=== PATIENT | female | born 2000 | race Caucasian/White ===

== ENCOUNTER 2023-08-16 20:38 | Emergency (ER) | payer OTHER ==
[2023-08-16 20:48] VITALS: O2SAT 98
--- NOTE | 2023-08-16 21:35 | ERPHSYRPT ---
- History of Present Illness Historian: patient Exam Limitations: no limitations Patient Subjective Stated Complaint: C/O chest pain that started at 0500 today while sitting in her bed at home. Triage Nursing Assessment: Patient ambulated back to ER without difficulties. S he is alert and oriented. No SOB. Skin tone normal. HUBBARD WNL. No edema. Physician History: Patient is a 23-year-old female with midsternal chest pain since 5 AM. Pain is sharp, midsternal and 9 out of 10 on the pain scale. It does not radiate. Nothing makes it better or worse. She has had nausea without vomiting, diaphoresis, or dyspnea. There is no cough or coryza. Patient has hypertension and vapes daily. Timing/Duration: other ( 5 AM today) Quality: sharpness Location: substernal Chest Pain Radiation: no radiation Severity of Pain-Max: severe Severity of Pain-Current: severe Modifying Factors: Improves With: nothing Associated Symptoms: denies symptoms, nausea Prior Chest Pain/Cardiac Workup: no prior chest pain Nitro Today/Relief: no nitro taken today Aspirin Treatment Today: no aspirin today Allergies/Adverse Reactions: No Known Drug Allergies Allergy (Verified 08/16/23 20:40) Home Medications: Albuterol Sulfate [Proair Respiclick] 2 puff PO Q4-6HPRN PRN 08/16/23 [History] Ergocalciferol (Vitamin D2) [Vitamin D2] 1,250 mcg PO WEEKLY 08/16/23 [History] Labetalol HCl 100 mg [Trandate 100 MG] 100 mg PO BID 08/16/23 [History] Hx Tetanus, Diphtheria Vaccination/Date Given: Yes Hx Influenza Vaccination/Date Given: No Hx Pneumococcal Vaccination/Date Given: No Immunizations Up to Date: Yes Travel Risk - International Travel Have you traveled outside of the country in past 3 weeks: No - Emerging Infectious Disease Are you exhibiting symptoms associated with any current EIDs: No - Review of Systems Constitutional: No Symptoms Eyes: No Symptoms Ears, Nose, & Throat: No Symptoms Respiratory: No Symptoms Abdominal/Gastrointestinal: No Symptoms Genitourinary Symptoms: No Symptoms Musculoskeletal: No Symptoms Skin: No Symptoms Neurological: No Symptoms Psychological: No Symptoms Endocrine: No Symptoms Hematologic/Lymphatic: No Symptoms Immunological/Allergic: No Symptoms - Past Medical History Pertinent Past Medical History: Yes Cardiac History: Hypertension Respiratory History: Asthma Other Medical History: thyroid nodules - Past Surgical History Past Surgical History: Yes Female Surgical History: Section - Female History Hx Last Menstrual Period: 07/27/23 Hx Now: No ("not that I know of") - Social History Smoking Status: Never smoker Exposure to second hand smoke: Yes Drug Use: none - Social Determinants of Health Will the patient participate in the screening: Yes Do you worry about a steady place to live?: No Do you have any problems with any of the following?: No known problems In the past 12 months,have you had to go without utilities?: No Transportation Issues: No Has anyone in your support network made you feel unsafe?: No Have you or anyone in your house had to go without enough: No - Nursing Vital Signs Nursing Vital Signs: Initial Vital Signs Pulse Rate 75 08/16/23 20:39 Respiratory Rate 19 08/16/23 20:39 Blood Pressure 135/89 08/16/23 20:39 O2 Sat by Pulse Oximetry 97 08/16/23 20:39 Pain Scale Pain Intensity 4 borderline hypertension - Physical Exam General Appearance: no apparent distress Eye Exam: PERRL/EOMI, eyes nml inspection Ears, Nose, Throat Exam: normal ENT inspection, TMs normal, pharynx normal, moist mucous membranes Neck Exam: normal inspection, non-tender, supple, full range of motion Respiratory Exam: normal breath sounds, lungs clear, airway intact Cardiovascular Exam: regular rate/rhythm, normal heart sounds, normal peripheral pulses, capillary refill <2 sec, No murmur Gastrointestinal/Abdomen Exam: soft, normal bowel sounds, No tenderness Back Exam: normal inspection, normal range of motion Extremity Exam: normal inspection, normal range of motion Neurologic Exam: alert, oriented x 3, cooperative, transfer engineer II-XII nml as tested, normal mood/affect, nml cerebellar function, nml station & gait, sensation nml Skin Exam: normal color, warm, dry Lymphatic Exam: No adenopathy SpO2 Interpretation: normal SpO2: 98 O2 Delivery: Room Air - Course Nursing assessment & vital signs reviewed: Yes EKG Interpreted by Me: RATE ( normal sinus rhythm/rate 75/normal QT-QTc/no acute ST segment changes/interpreted contemporaneously per ER physician.) - Radiology Exams Chest X-ray Interpretation: Interpreted by me (NAD) Ordered Tests: Active Orders 24 hr Category Date Time Status CHEST 1 VIEW (PORTABLE) Stat Exams 08/16/23 21:31 Taken D-DIMER QUANTITATIVE Stat Lab 08/16/23 21:00 Completed TROPONIN Q4H Lab 08/16/23 21:00 Completed TROPONIN Q4H Lab 08/17/23 01:45 Ordered TROPONIN Q4H Lab 08/17/23 05:45 Ordered Lab/Rad Data: Laboratory Results 08/16/23 08/16/23 Range/Units 21:00 21:00 D-Dimer 0.32 (0.0-0.50) mg/L Troponin I < 0.012 (0.000-0.033) ng/mL reviewed - Progress Progress Note: 08/16/23 22:41 Nursing note and vital signs reviewed. No food or housing insecurity noted. All lab results thoroughly reviewed and shared with patient. Chest x-ray interpreted by ER physician and result was shared with patient. Patient's heart score is 1 and Wells score for pulmonary embolus is 0. Pain is most likely noncardiac in origin, and patient is advised to follow-up with her PCP in 1 to 2 days and return to ER for increasing pain, increasing shortness of breath, or temperature greater 100.5. Counseled pt/family regarding: lab results, diagnosis, need for follow-up, rad results Medical Desision Making - Diagnostic Testing Diagnostic test were ordered, analyzed, and reviewed by me: Yes Radiological Interpretation: Interpreted by me - Risk of complications Low Risk: Low risk of morbidity from additional dx testing or treatment - Departure Departure Disposition: Home Clinical Impression: Chest pain Condition: Stable Critical Care Time: No Referrals: VALENTE PATTON NP [Primary Care Provider] - Follow up/PCP as directed Instructions: Chest Pain (DC) Additional Instructions: Follow-up with your family MD in 1 to 2 days Motrin/Tylenol for pain Return to ER for increasing pain, increasing shortness of breath, or temperature greater 100.5.
[2023-08-16 22:18] VITALS: BP 109/74; PULSE 74; RESP 21
--- NOTE | 2023-08-17 08:55 | XRAY ---
Indication: Chest pain. Comparison: None Portable chest demonstrates normal heart, lungs, and bony thorax.
== END 2023-08-16 22:45 | disposition home or self-care (01) ==
LOC: ED 20:38
DX: R07.9 Chest pain, unspecified (principal); R11.0 Nausea; I10 Essential (primary) hypertension; Z79.899 Other long term (current) drug therapy
CPT/HCPCS: 36000; 36415; 71045; 84484; 85379; 93005; 99284

== ENCOUNTER 2023-11-24 21:30 | Emergency (ER) | payer OTHER ==
[2023-11-24 22:12] VITALS: TEMP 97.5
[2023-11-24 22:34] LABS: HCG URINE TEST NEGATIVE (NEGATIVE)
[2023-11-24 22:47] LABS: Appearance Clear (Clear); Bacteria None Seen /HPF (None Seen); Bilirubin Negative (Negative); Blood Moderate (Negative); Epithelial Cells None Seen /HPF (None Seen); Glucose, Urine Negative (Negative); Hyaline Casts NONE SEEN /LPF (0-2); Ketones Negative (Negative); Leukocyte Esterase Negative (Negative); Nitrite Negative (Negative); Protein,Urine Dip Negative (Negative); RBC 0-2 /HPF (0-5); Specific Gravity <=1.005 (1.005-1.030); WBC 0-2 /HPF (0-5)
[2023-11-24] MEDS ORDERED: Sodium Chloride 0.9% 1000 ML 1,000 ML ONE (22:50)
[2023-11-24] MEDS: Sodium Chloride 0.9% 1000 ML 1,000 ML IV STA (22:51)
[2023-11-24 22:54] LABS: Absolute Neutrophil Ct (ANC) 7.29 x10^3/uL (1.56-6.13); BASOPHIL % 0.3 % (0.1-1.2); Basophil (Absolute #) 0.04 x10^3/uL (0.01-0.08); Eosinophil (Absolute #) 0.36 x10^3/uL (0.04-0.36); Hemoglobin 11.5 g/dL (11.2-15.7); IMMATURE GRAN # 0.03 x10^3u/L (0.001-0.031); IMMATURE GRAN % 0.3 % (0.001-0.429); Lymphocyte (Absolute #) 3.49 x10^3/uL (1.18-3.74); Lymphocytes % 29.6 % (19.3-51.7); Mean Cell Volume 89.3 fL (79.4-94.8); Mean Corpuscular Hemoglobin 29.3 pg (25.6-32.2); Mean Corpuscular Hgb Concent. 32.9 g/dL (32.2-35.5); Mean Platelet Volume 10.4 fL (9.4-12.3); Monocytes % 5.1 % (4.7-12.5); Neutrophil % 61.7 % (34.0-71.1); Platelet Count 325 x10^3/uL (182-369); Red Blood Count 3.92 x10^6/uL (3.93-5.22); Red Cell Distribution Width 11.9 % (11.7-14.4); White Blood Count 11.8 x10^3/uL (3.98-10.04)
--- NOTE | 2023-11-24 22:57 | ERPHSYRPT ---
- History of Present Illness Time Seen by Provider: 11/24/23 22:51 Historian: patient Exam Limitations: no limitations Patient Subjective Stated Complaint: c/o of abdominal pain Triage Nursing Assessment: Pt brought to ED by sister with c/o of abdominal pain. Rates pain 11/01. Pt had ultrasound last week that showed gallstones. Patient said she has been having pain for the past couple of months but today the pain was a lot worse. Pt's vitals wnl, gait steady, pulses normal, skin w/n/d, last BM this morning, bowel sounds present in all 4 quads, non-tender with palpation, pt doesn't appear to be in any distress at this time. Physician History: 23-year-old female presents to our emergency department for evaluation of epigastric pain. Patient states she has been experiencing intermittent epigastric pain for several months. Last week patient followed up with her primary care doctor. They performed an outpatient right upper quadrant ultrasound which revealed gallstones. Patient currently has an appointment agnes eduled to follow-up with Dr. Carrillo on December 08. Patient is here today because she is experiencing a recurrence of her abdominal pain. Pain is epigastric into the right upper quadrant. Patient reports the pain was 7 out of 10 prior to arrival. Pain is down to 4 out of 10 at this time. Patient declined additional pain medication because she feels comfortable. No trauma. No fever. No vomiti ng no diarrhea no rash. Sister at bedside. They voiced no other complaints or concerns at this time. Portions of this note were created with voice recognition technology. There may be grammatical, spelling, punctuation or sound alike errors Timing/Duration: today Activities at Onset: none Quality: aching Abdominal Pain Onset Location: epigastric Pain Radiation: no radiation Severity of Pain-Max: moderate Severity of Pain-Current: mild Modifying Factors: Improves With: palpation Associated Symptoms: denies symptoms Previous symptoms: same symptoms as today Allergies/Adverse Reactions: No Known Drug Allergies Allergy (Verified 11/24/23 22:11) Home Medications: Albuterol Sulfate [Proair Respiclick] 2 puff PO Q4-6HPRN PRN 08/16/23 [History] Ergocalciferol (Vitamin D2) [Vitamin D2] 1,250 mcg PO WEEKLY 08/16/23 [History] Labetalol HCl 100 mg [Trandate 100 MG] 100 mg PO BID 08/16/23 [History] Letrozole 2.5 mg PO UD 11/24/23 [History] Metformin HCl 500 mg [Glucophage 500 MG] 500 mg PO DAILY 11/24/23 [History] Hx Tetanus, Diphtheria Vaccination/Date Given: No (unknown) Hx Influenza Vaccination/Date Given: No Hx Pneumococcal Vaccination/Date Given: No Travel Risk - International Travel Have you traveled outside of the country in past 3 weeks: No - Emerging Infectious Disease Are you exhibiting symptoms associated with any current EIDs: Yes Symptoms: Abdominal Pain - Review of Systems Constitutional: No Symptoms, No Fever, No Chills Eyes: No Symptoms Ears, Nose, & Throat: No Symptoms Respiratory: No Symptoms, No Cough, No Dyspnea Cardiac: No Symptoms, No Chest Pain, No Edema, No Syncope Abdominal/Gastrointestinal: No Symptoms, No Abdominal Pain, No Nausea, No Vomiting, No Diarrhea Genitourinary Symptoms: No Symptoms, No Dysuria Musculoskeletal: No Symptoms, No Back Pain, No Neck Pain Skin: No Symptoms, No Rash Neurological: No Symptoms, No Dizziness, No Focal Weakness, No Sensory Changes Psychological: No Symptoms Endocrine: No Symptoms Hematologic/Lymphatic: No Symptoms Immunological/Allergic: No Symptoms All Other Systems: Reviewed and Negative - Past Medical History Pertinent Past Medical History: Yes Cardiac History: Hypertension Respiratory History: Asthma GI Medical History: Ulcer Other Medical History: thyroid nodules, gallstones - Past Surgical History Past Surgical History: Yes Female Surgical History: Section - Female History Hx Last Menstrual Period: 11/23/2013 Hx Now: No - Social History Smoking Status: Never smoker Exposure to second hand smoke: Yes Drug Use: none - Social Determinants of Health Will the patient participate in the screening: Yes Do you worry about a steady place to live?: No Do you have any problems with any of the following?: No known problems In the past 12 months,have you had to go without utilities?: No Transportation Issues: No Has anyone in your support network made you feel unsafe?: No Have you or anyone in your house had to go without enough: No - Nursing Vital Signs Nursing Vital Signs: Initial Vital Signs Temperature 97.5 F 11/24/23 21:58 Pulse Rate 55 L 11/24/23 21:58 Respiratory Rate 18 11/24/23 21:58 Blood Pressure 110/75 11/24/23 21:58 O2 Sat by Pulse Oximetry 100 11/24/23 21:58 Pain Scale Pain Intensity 9 - Physical Exam General Appearance: no apparent distress, alert Eye Exam: PERRL/EOMI, eyes nml inspection Ears, Nose, Throat Exam: normal ENT inspection, pharynx normal, moist mucous membranes Neck Exam: normal inspection, non-tender, supple, full range of motion Respiratory Exam: normal breath sounds, lungs clear, airway intact, No respira tory distress Cardiovascular Exam: regular rate/rhythm, normal heart sounds Gastrointestinal/Abdomen Exam: soft, No tenderness, No mass Back Exam: normal inspection, normal range of motion, No CVA tenderness, No vertebral tenderness Extremity Exam: normal inspection, normal range of motion, pelvis stable Neurologic Exam: alert, oriented x 3, cooperative, normal mood/affect, sensation nml, No motor deficits Skin Exam: normal color, warm, dry Lymphatic Exam: adenopathy SpO2 Interpretation: normal SpO2: 100 O2 Delivery: Room Air - Course Nursing assessment & vital signs reviewed: Yes Ordered Tests: Active Orders 24 hr Category Date Time Status IV Insertion STAT Care 11/24/23 22:26 Active ABDOMEN AND PELVIS W&WO CONTRA [CT] Stat Exams 11/24/23 22:26 Completed CBC W DIFF Stat Lab 11/24/23 22:50 Completed CMP Stat Lab 11/24/23 22:50 Completed HCG QUALITATIVE, URINE Stat Lab 11/24/23 22:25 Completed LIPASE Stat Lab 11/24/23 22:50 Completed TROPONIN Q4H Lab 11/24/23 22:50 Completed TROPONIN Q4H Lab 11/25/23 02:30 Ordered TROPONIN Q4H Lab 11/25/23 06:30 Ordered UA W/RFX UR CULTURE Stat Lab 11/24/23 22:25 Completed Medication Summary Discontinued Medications Generic Name Dose Route Start Last Admin Trade Name Freq PRN Reason Stop Dose Admin Sodium Chloride 1,000 mls @ 999 mls/hr 11/24/23 22:26 11/24/23 23:51 Sodium Chloride 0.9% 1000 Ml IV 11/24/23 23:26 Infused .Q1H1M STA Infusion Sodium Chloride Confirm 11/24/23 22:50 Sodium Chloride 0.9% 1000 Ml Administered 11/24/23 22:51 Dose 1,000 mls @ ud .ROUTE .STK-MED ONE Lab/Rad Data: Laboratory Result Diagrams 11/24/23 22:50 11/24/23 22:50 Laboratory Results 11/24/23 11/24/23 11/24/23 Range/Units 22:50 22:50 22:50 WBC 11.8 H (3.98-10.04) x10^3/uL RBC 3.92 L (3.93-5.22) x10^6/uL Hgb 11.5 (11.2-15.7) g/dL Hct 35.0 (34.1-44.9) % MCV 89.3 (79.4-94.8) fL MCH 29.3 (25.6-32.2) pg MCHC 32.9 (32.2-35.5) g/dL RDW 11.9 (11.7-14.4) % Plt Count 325 (182-369) x10^3/uL MPV 10.4 (9.4-12.3) fL Gran % 61.7 (34.0-71.1) % Immature Gran % (Auto) 0.3 (0.001-0.429) % Nucleat RBC Rel Count 0.0 (0.00-0.2) % Eos # (Auto) 0.36 (0.04-0.36) x10^3/uL Immature Gran # (Auto) 0.03 (0.001-0.031) x10^3u/L Absolute Lymphs (auto) 3.49 (1.18-3.74) x10^3/uL Absolute Monos (auto) 0.60 (0.24-0.86) x10^3/uL Absolute Nucleated RBC 0.00 (0.00-0.012) x10^3u/L Lymphocytes % 29.6 (19.3-51.7) % Monocytes % 5.1 (4.7-12.5) % Eosinophils % 3.0 (0.7-5.8) % Basophils % 0.3 (0.1-1.2) % Absolute Granulocytes 7.29 H (1.56-6.13) x10^3/uL Basophils # 0.04 (0.01-0.08) x10^3/uL Sodium 142 (135-145) mmol/L Potassium 4.1 (3.5-5.1) mmol/L Chloride 109 H (98-107) mmol/L Carbon Dioxide 25 (22-30) mmol/L Anion Gap 12.3 (5-15) MEQ/L BUN 11 (7-17) mg/dL Creatinine 0.74 (0.52-1.04) mg/dL Estimated GFR 116.5 ML/MIN Glucose 108 H (74-106) mg/dL Calcium 9.6 (8.4-10.2) mg/dL Total Bilirubin 0.40 (0.2-1.3) mg/dL AST 30 (14-36) U/L ALT 58 H (0-35) U/L Alkaline Phosphatase 73 (38-126) U/L Troponin I < 0.012 (0.000-0.033) ng/mL Serum Total Protein 7.0 (6.3-8.2) g/dL Albumin 4.3 (3.5-5.0) g/dL Lipase 140 (23-300) U/L Urine Color (Yellow) Urine Appearance (Clear) Urine pH (4.6-8.0) Ur Specific [place] (1.005-1.030) Urine Protein (Negative) Urine Glucose (UA) (Negative) mg/dL Urine Ketones (Negative) Urine Blood (Negative) Urine Nitrite (Negative) Urine Bilirubin (Negative) Urine Urobilinogen (0.2) mg/dL Ur Leukocyte Esterase (Negative) U Hyaline Cast (Auto) (0-2) /LPF Urine Microscopic RBC (0-5) /HPF Urine Microscopic WBC (0-5) /HPF Ur Epithelial Cells (None Seen) /HPF Urine Bacteria (None Seen) /HPF Urine Culture Reflexed (NO) Urine HCG, Qual (NEGATIVE) 11/24/23 11/24/23 Range/Units 22:25 22:25 WBC (3.98-10.04) x10^3/uL RBC (3.93-5.22) x10^6/uL Hgb (11.2-15.7) g/dL Hct (34.1-44.9) % MCV (79.4-94.8) fL MCH (25.6-32.2) pg MCHC (32.2-35.5) g/dL RDW (11.7-14.4) % Plt Count (182-369) x10^3/uL MPV (9.4-12.3) fL Gran % (34.0-71.1) % Immature Gran % (Auto) (0.001-0.429) % Nucleat RBC Rel Count (0.00-0.2) % Eos # (Auto) (0.04-0.36) x10^3/uL Immature Gran # (Auto) (0.001-0.031) x10^3u/L Absolute Lymphs (auto) (1.18-3.74) x10^3/uL Absolute Monos (auto) (0.24-0.86) x10^3/uL Absolute Nucleated RBC (0.00-0.012) x10^3u/L Lymphocytes % (19.3-51.7) % Monocytes % (4.7-12.5) % Eosinophils % (0.7-5.8) % Basophils % (0.1-1.2) % Absolute Granulocytes (1.56-6.13) x10^3/uL Basophils # (0.01-0.08) x10^3/uL Sodium (135-145) mmol/L Potassium (3.5-5.1) mmol/L Chloride (98-107) mmol/L Carbon Dioxide (22-30) mmol/L Anion Gap (5-15) MEQ/L BUN (7-17) mg/dL Creatinine (0.52-1.04) mg/dL Estimated GFR ML/MIN Glucose (74-106) mg/dL Calcium (8.4-10.2) mg/dL Total Bilirubin (0.2-1.3) mg/dL AST (14-36) U/L ALT (0-35) U/L Alkaline Phosphatase (38-126) U/L Troponin I (0.000-0.033) ng/mL Serum Total Protein (6.3-8.2) g/dL Albumin (3.5-5.0) g/dL Lipase (23-300) U/L Urine Color Yellow (Yellow) Urine Appearance Clear (Clear) Urine pH 6.0 (4.6-8.0) Ur Specific [place] <=1.005 (1.005-1.030) Urine Protein Negative (Negative) Urine Glucose (UA) Negative (Negative) mg/dL Urine Ketones Negative (Negative) Urine Blood Moderate A (Negative) Urine Nitrite Negative (Negative) Urine Bilirubin Negative (Negative) Urine Urobilinogen 1.0 A (0.2) mg/dL Ur Leukocyte Esterase Negative (Negative) U Hyaline Cast (Auto) NONE SEEN (0-2) /LPF Urine Microscopic RBC 0-2 (0-5) /HPF Urine Microscopic WBC 0-2 (0-5) /HPF Ur Epithelial Cells None Seen (None Seen) /HPF Urine Bacteria None Seen (None Seen) /HPF Urine Culture Reflexed NO (NO) Urine HCG, Qual NEGATIVE (NEGATIVE) - Progress Progress: improved Progress Note: 23-year-old female presents to our ED with right upper quadrant and epigastric pain. Patient states she has been experiencing the same pain intermittently. Patient recently diagnosed with cholelithiasis. Patient currently has a consultation scheduled with Dr. Carrillo per patient. Patient initially declined pain medication. However later into her visit patient requested pain medication. Patient received I be Toradol. Prescription for the same forwarded to patient's pharmacy. No acute findings observed on laboratory workup. UA negative for urinary tract infection. CT scan with and without contrast ordered per outpatient prescription written in anticipation of patient's visit with general surgery. Patient given a copy of her CD to share with her surgeon. Patient states she is ready for discharge. Patient's sister at the bedside will drive home. They voiced no other complaints or concerns at this time. Portions of this note were created with voice recognition technology. There may be grammatical, spelling, punctuation or sound alike errors Complexity of problem addressed is moderate acute complicated. No critical care time. Complex of data reviewed and analyzed is moderate. Test ordered chest reviewed results analyzed and correlated clinically with history and physical exam. Risk of complication and or risk of morbidity/mortality patient management is moderate. [facility] Vital stable. Time spent to discharge patient is approximately 10 minutes. Plan of care established for shared decision making. No social determinants of health present to impede follow-up. Portions of this note were created with voice recognition technology. There may be grammatical, spelling, punctuation or sound alike errors 11/25/23 00:58 Counseled pt/family regarding: lab results, diagnosis, need for follow-up, rad results - Departure Departure Disposition: Home Clinical Impression: Epigastric pain, Fatty liver, Hepatomegaly, Biliary colic Condition: Stable Critical Care Time: No Referrals: VALENTE PATTON NP [Primary Care Provider] - Follow up/PCP as directed Additional Instructions: Discharge/Care Plan GUZMAN PEREZ was seen on 11/25/23 in the Emergency Room. The patient was counseled regarding Diagnosis,Lab results, Imaging studies, need for follow up and when to return to the Emergency Room. Prescriptions given: Discharge Note I have spoken with the patient and/or caregivers. I have explained the patient's condition, diagnosis and treatment plan based on the information available to me at this time. I have answered the patient's and/or caregiver's questions and addressed any concerns. The patient and/or caregivers have as good understanding of the patient's diagnosis, condition and treatment plan as can be expected at this point. The vital signs have been stable. The patient's condition is stable and appropriate for discharge from the emergency department. The patient will pursue further outpatient evaluation with the primary care phys ician or other designated or consulting physician as outlined in the discharge instructions. The patient and/or caregivers are agreeable to this plan of care and follow-up instructions have been explained in detail. The patient and/or caregivers have received these instruction. The patient/and or caregivers are aware that any significant change in condition or worsening of symptoms should prompt an immediate return to this or the closest emergency department or call 911. Prescriptions: Ketorolac Trometh 10 mg Tab [TORAdol 10 MG TABLET] 10 mg PO TID 5 Days #15 tablet
[2023-11-24 23:09] LABS: ALBUMIN 4.3 g/dL (3.5-5.0); ANION GAP 12.3 MEQ/L (5-15); BILIRUBIN,TOTAL 0.4 mg/dL (0.2-1.3); Calcium 9.6 mg/dL (8.4-10.2); Creatinine 1 0.74 mg/dL (0.52-1.04); EST GLOMERULAR FILTRATION RATE 116.5 ML/MIN; Potassium 4.1 mmol/L (3.5-5.1)
--- NOTE | 2023-11-25 00:15 | XRAY ---
CLINICAL HISTORY: pain COMPARISON: None. TECHNIQUE: CT scan of the abdomen and pelvis was performed with and without IV contrast. Coronal and sagittal reconstructive images were also obtained.One of the following dose reduction techniques were utilized for this exam: Automated exposure control, adjustment of the mA and/or kV according to patient size, use of iterative reconstruction. FINDINGS: Abdomen: The liver is enlarged in size, measuring 19 cm craniocaudally and show fatty infiltration. The portal vein, intrahepatic biliary radicals and the bile ducts are normal. The gallbladder is normal. No pericholecystic collection or radio dense calculi in the gall bladder. The spleen, pancreas, adrenal glands are unremarkable. The kidneys are normal in size and shape. No calculi or hydronephrosis. The ascending colon, the transverse colon, the descending colon, visualized small bowel loops are unremarkable. Appendix appears unremarkable. Pelvis: The urinary bladder is unremarkable. The rectosigmoid colon is unremarkable. Uterus and adnexa appear unremarkable. No evidence of pelvic lymphadenopathy. IMPRESSION: No significant acute abnormality detected in CT abdomen and pelvis Mild to moderate hepatomegaly with fatty infiltration Electronically Signed by: Amy Monqiue MD. (11/25/2023 00:12:04 EDT)
[2023-11-25] MEDS ORDERED: TORAdol 30 mg Injection ONE (00:58)
[2023-11-25] MEDS: TORAdol 30 mg Injection IV ONE (00:59)
[2023-11-25 01:46] VITALS: BP 108/40; PULSE 70; RESP 16; O2SAT 98
== END 2023-11-25 01:46 | disposition home or self-care (01) ==
LOC: ED 21:30
DX: R10.13 Epigastric pain (principal); K76.0 Fatty (change of) liver, not elsewhere classified; R16.0 Hepatomegaly, not elsewhere classified; K80.50 Calculus of bile duct without cholangitis or cholecystitis without obstruction; I10 Essential (primary) hypertension; Z79.84 Long term (current) use of oral hypoglycemic drugs; Z79.899 Other long term (current) drug therapy
CPT/HCPCS: 36000; 36415; 74178; 80053; 81001; 81025; 83690; 84484; 85025; 96360; 96374; 99284; J1885

== ENCOUNTER 2023-12-19 16:08 | Emergency (ER) | payer OTHER ==
[2023-12-19 16:26] VITALS: BP 122/81; PULSE 74; RESP 18; TEMP 97; O2SAT 96
--- NOTE | 2023-12-19 16:34 | ERPHSYRPT ---
- History of Present Illness Time Seen by Provider: 12/19/23 16:30 Source: patient Exam Limitations: no limitations Physician History: Patient is 23-year-old female has a recent cholecystectomy laparoscopically and came to the emergency room for wound check as she was worried about possible infection. She denies any other symptoms. She denies any discharge from any of those laparoscopic entry places. Allergies/Adverse Reactions: No Known Drug Allergies Allergy (Verified 12/19/23 16:25) Home Medications: Albuterol Sulfate [Proair Respiclick] 2 puff PO Q4-6HPRN PRN 08/16/23 [History] Ergocalciferol (Vitamin D2) [Vitamin D2] 1,250 mcg PO WEEKLY 08/16/23 [History] Labetalol HCl 100 mg [Trandate 100 MG] 100 mg PO BID 08/16/23 [History] Letrozole 2.5 mg PO UD 11/24/23 [History] Metformin HCl 500 mg [Glucophage 500 MG] 500 mg PO DAILY 11/24/23 [History] Hx Tetanus, Diphtheria Vaccination/Date Given: No (unknown) Hx Influenza Vaccination/Date Given: No Hx Pneumococcal Vaccination/Date Given: No Travel Risk - Emerging Infectious Disease Are you exhibiting symptoms associated with any current EIDs: Yes Symptoms: Abdominal Pain - Review of Systems Constitutional: No Symptoms Eyes: No Symptoms Ears, Nose, & Throat: No Symptoms Respiratory: No Symptoms Cardiac: No Symptoms Abdominal/Gastrointestinal: No Symptoms Genitourinary Symptoms: No Symptoms Musculoskeletal: No Symptoms Skin: No Symptoms Neurological: No Symptoms - Past Medical History Pertinent Past Medical History: Yes Cardiac History: Hypertension Respiratory History: Asthma GI Medical History: Ulcer Other Medical History: thyroid nodules, gallstones, FATTY LIVER - Past Surgical History Past Surgical History: Yes Gastrointestinal: Cholecystectomy Female Surgical History: Section - Female History Hx Last Menstrual Period: 11/23/2013 - Social History Smoking Status: Never smoker Exposure to second hand smoke: Yes Drug Use: none - Social Determinants of Health Will the patient participate in the screening: Yes Do you worry about a steady place to live?: No In the past 12 months,have you had to go without utilities?: No Transportation Issues: No Has anyone in your support network made you feel unsafe?: No Have you or anyone in your house had to go without enough: No - Nursing Vital Signs Nursing Vital Signs: Initial Vital Signs Temperature 97.0 F 12/19/23 16:25 Pulse Rate 74 12/19/23 16:25 Respiratory Rate 18 12/19/23 16:25 Blood Pressure 122/81 12/19/23 16:25 O2 Sat by Pulse Oximetry 96 12/19/23 16:25 Pain Scale Pain Intensity 0 - Physical Exam General Appearance: no apparent distress Eye Exam: PERRL/EOMI Ears, Nose, Throat Exam: normal ENT inspection Neck Exam: normal inspection Respiratory Exam: normal breath sounds Cardiovascular Exam: regular rate/rhythm Gastrointestinal/Abdomen Exam: soft, normal bowel sounds, other (steristrips area normal. no discharge,) Neurologic Exam: alert, oriented x 3 Skin Exam: normal color SpO2 Interpretation: normal SpO2: 96 O2 Delivery: Room Air - Course Nursing assessment & vital signs reviewed: Yes - Progress Progress: improved Counseled pt/family regarding: diagnosis, need for follow-up Medical Desision Making - Risk of complications Minimal Risk: Minimal risk of morbidity - Departure Departure Disposition: Home Clinical Impression: Surgical wound present Condition: Stable Critical Care Time: No Referrals: VALENTE PATTON, MIGEL [Primary Care Provider] - Follow up/PCP as directed Instructions: Wound Care (DC) Additional Instructions: CYNTHIASiobhanGUZMAN was seen on 12/19/23 n the Emergency Room. At that time you were treated for an emergent condition, during your visit Laboratory, Radiology and/or other procedures may have been ordered. It is very important that you follow-up with your Primary Care Physician VALENTE PATTON within the next 24-48 hours to review your Emergency Room visit and the final results of testing that was ordered. Some test results such as Urine Cultures, Blood Cultures, and other cultures if ordered will not be finalized for 24-48 hours. If you do not have a Primary Care Provider please call the medical records department at [phone] ext [phone] to obtain a copy of your results or you may sign into our patient portal to obtain these results by visiting us @ [email or web address] and completing the following steps: 1. Click on the Patient Portal link 2. Click the Patient Self Enrollment Link to complete the enrollment form and entering your 3. Once the enrollment form is completed you will receive an email with a temporary ID and password at the email address you provided. 4. Next choose a user name and password. Your user name must be at least 4 characters long and your password must be at least 4 characters long. 5. Choose a security question from the list and provide your answer to the question. If you already have signed into the Health Portal you may access your Health Care Information 14/09 by the following steps: 1. Login to our website @ [email or web address] 2. Enter your original user name and password. FAQS The [facility] Portal is an online tool that contains your Lab Results, Radiology Reports, Visit History, Discharge Instructions and Health Summary Lab and Radiology Results will not be available for 72 hours on the portal. The Portal is a secure site, passwords are encryted and URLs are re-written so they cannot be copied and pasted. You and authorized family members are the only ones who can access your Portal. Also there is a timeout feature that protects your information if you leave the Portal page open. If you have technical difficulty please use the Contact Us link on the page this will allow you to submit any questions you have regarding the Portal or you may contact the Medical Record Department at [phone] ext [phone].
== END 2023-12-19 16:45 | disposition home or self-care (01) ==
LOC: ED 16:08
DX: Z48.01 Encounter for change or removal of surgical wound dressing (principal); I10 Essential (primary) hypertension; Z79.84 Long term (current) use of oral hypoglycemic drugs; Z79.899 Other long term (current) drug therapy
CPT/HCPCS: 99281